=== PATIENT | female | born 1980 | race Caucasian/White ===

== ENCOUNTER 2016-12-22 22:12 | Emergency (ER) | payer OTHER ==
[~2016-12-22 22:12] MED LIST: COL100 PO; FER300 PO; METHOTREXATE2.5 M2 PO; NOR10T PO; PREDNISONE2.5 MG PO; VITC PO; ZOFRAN8 MG PO
[2016-12-23 00:39] VITALS: BP 115/90
== END 2016-12-22 23:15 | disposition home or self-care (01) ==
LOC: ED 22:12
DX: M06.9 Rheumatoid arthritis, unspecified (principal); F41.9 Anxiety disorder, unspecified; Z79.899 Other long term (current) drug therapy
CPT/HCPCS: J1170; Q0162

== ENCOUNTER 2017-04-29 14:17 | Emergency (ER) | payer OTHER ==
[2017-04-29 14:43] VITALS: BP 123/77
== END 2017-04-29 16:50 | disposition home or self-care (01) ==
LOC: ED 14:17
DX: S93.402A Sprain of unspecified ligament of left ankle, initial encounter (principal); X50.1XXA Overexertion from prolonged static or awkward postures, initial encounter; Y93.89 Activity, other specified; Y92.89 Other specified places as the place of occurrence of the external cause; Y99.8 Other external cause status

== ENCOUNTER 2017-06-01 21:05 | Emergency (ER) | payer OTHER ==
[2017-06-01 23:12] VITALS: BP 117/87
== END 2017-06-01 23:12 | disposition home or self-care (01) ==
LOC: ED 21:05
DX: J02.9 Acute pharyngitis, unspecified (principal); M79.1 Myalgia; R11.2 Nausea with vomiting, unspecified; M06.9 Rheumatoid arthritis, unspecified
CPT/HCPCS: J7512

== ENCOUNTER 2017-06-21 17:23 | Emergency (ER) | payer OTHER ==
[2017-06-21 21:05] VITALS: BP 143/108
== END 2017-06-21 21:06 | disposition home or self-care (01) ==
LOC: ED 17:23
DX: S40.022A Contusion of left upper arm, initial encounter (principal); Z88.0 Allergy status to penicillin; X58.XXXA Exposure to other specified factors, initial encounter; Y93.89 Activity, other specified; Y92.89 Other specified places as the place of occurrence of the external cause; Y99.8 Other external cause status

== ENCOUNTER 2017-07-24 16:59 | Emergency (ER) | payer OTHER ==
[2017-07-24 19:40] VITALS: BP 118/74
== END 2017-07-24 19:40 | disposition home or self-care (01) ==
LOC: ED 16:59
DX: S93.402A Sprain of unspecified ligament of left ankle, initial encounter (principal); M06.9 Rheumatoid arthritis, unspecified; Z88.0 Allergy status to penicillin; X50.1XXA Overexertion from prolonged static or awkward postures, initial encounter; Y93.89 Activity, other specified; Y92.89 Other specified places as the place of occurrence of the external cause; Y99.8 Other external cause status
CPT/HCPCS: J1885; J7512

== ENCOUNTER 2017-09-22 22:47 | Observation (INO) | payer OTHER ==
[~2017-09-22] VITALS: Ht 154.9 cm; Wt 70.3 kg
[2017-09-22 23:09] VITALS: Ht 154.9 cm; Wt 70.3 kg
[2017-09-23 00:42] LABS: BASOPHIL % 0.4 % (0-2); PLATELET COUNT 306 x10^3mcL (130-400)
[2017-09-23 00:44] LABS: RED CELL DISTRIBUTION WIDTH 16.5 % (11.5-14.5)
[2017-09-23 00:53] LABS: CALCIUM 8.2 mg/dL (8.5-10.1); CARBON DIOXIDE 26.7 mmol/L (21-32); CHLORIDE SERUM 106 mmol/L (98-107); CREATININE SERUM 0.6 mg/dL (0.6-1.0); GFR1 > 60 mL/min; GLUCOSE SERUM 101 mg/dL (74-106); POTASSIUM SERUM 3.4 mmol/L (3.5-5.1); SODIUM SERUM 140 mmol/L (136-145)
[2017-09-23 00:57] LABS: ALKALINE PHOSPHATASE 42 U/L (46-116); ALT/SGPT 17 U/L (14-59); AST/SGOT 13 U/L (15-37); BILIRUBIN TOTAL 0.25 mg/dL (0.20-1.00); TOTAL PROTEIN, SERUM 6.5 g/dL (6.4-8.2)
[2017-09-23 00:58] LABS: ALBUMIN 3.3 g/dL (3.4-5.0)
[2017-09-23 02:41] VITALS: BP 112/65
[2017-09-23 02:51] VITALS: BP 112/65
[2017-09-23 04:02] LABS: FREE T4 1.1 ng/dL (0.76-1.46); FREE THYROXINE INDEX 2.5 ug/dL (1.4-4.5); T4(THYROXINE) 7.1 ug/dL (4.7-13.3)
[2017-09-23 04:03] LABS: T3 TOTAL 1.11 ng/mL
[2017-09-23 04:20] LABS: CHOLESTEROL/HDL RATIO 2.4; MAGNESIUM 1.9 mg/dL (1.8-2.4); PHOSPHOROUS 4.1 mg/dL (2.5-4.9)
[2017-09-23 05:09] VITALS: BP 110/83
[2017-09-23 08:35] VITALS: BP 95/64
[2017-09-23 10:49] LABS: microscopic required? YES; urine erythrocyte 3+ (NEGATIVE)
[2017-09-23 10:59] LABS: AMPHETAMINE QUAL UR NONE DETECTED (NEG <=1000)
[2017-09-23 12:17] VITALS: BP 99/67
[2017-09-23 20:31] VITALS: BP 98/70
[2017-09-24 05:00] VITALS: BP 101/66
[2017-09-24 06:01] LABS: BASOPHIL % 0.5 % (0-2); PLATELET COUNT 279 x10^3mcL (130-400)
[2017-09-24 06:20] LABS: RED CELL DISTRIBUTION WIDTH 16.9 % (11.5-14.5)
[2017-09-24 06:28] LABS: CHLORIDE SERUM 110 mmol/L (98-107); CREATININE SERUM 0.8 mg/dL (0.6-1.0); GFR1 > 60 mL/min; GLUCOSE SERUM 90 mg/dL (74-106); MAGNESIUM 1.7 mg/dL (1.8-2.4); PHOSPHOROUS 3.2 mg/dL (2.5-4.9); SODIUM SERUM 142 mmol/L (136-145)
[2017-09-24 09:05] VITALS: BP 112/79
[2017-09-24] MEDS ORDERED: LEVAQUIN750 MG PO (09:27)
[2017-09-24] MEDS ORDERED: LAC PO (09:28)
[2017-09-24] MEDS ORDERED: METHOCARBAMOL500 MG PO (09:29)
[2017-09-24] MEDS ORDERED: MECLIZINE HCL12.5 MG PO (09:30)
[2017-09-24] MEDS ORDERED: TYL325 PO (09:30)
[2017-09-24] MEDS ORDERED: ELA50 PO (09:30)
[2017-09-24] MEDS ORDERED: FER300 PO (09:48)
[2017-09-24 10:13] VITALS: BP 112/79
== END 2017-09-24 11:23 | disposition home or self-care (01) | DRG 54 ==
LOC: ED 22:47 → DU 09-23 01:49
PROVIDERS: Family Medicine; Specialist
DX: G44.209 Tension-type headache, unspecified, not intractable (principal); N17.0 Acute kidney failure with tubular necrosis; N39.0 Urinary tract infection, site not specified; E87.6 Hypokalemia; D64.9 Anemia, unspecified; E44.1 Mild protein-calorie malnutrition; M06.9 Rheumatoid arthritis, unspecified; F14.11 Cocaine abuse, in remission; Z68.29 Body mass index [BMI] 29.0-29.9, adult; Z79.52 Long term (current) use of systemic steroids
CPT/HCPCS: 83880; 84439; 97110-GP; 97116-GP; 97530-GP; G0378; J0780; J1885; J1956; J3010; J3030; J7030; J7512; J8597; Q0092

== ENCOUNTER 2017-10-07 09:06 | Emergency (ER) | payer OTHER ==
[~2017-10-07] VITALS: Ht 154.9 cm; Wt 69.4 kg
[~2017-10-07 09:06] MED LIST changes: +ELA50 PO; +LAC PO; +LEVAQUIN750 MG PO; +MECLIZINE HCL12.5 MG PO; +METHOCARBAMOL500 MG PO; +TYL325 PO
[2017-10-07 09:27] VITALS: Ht 154.9 cm; Wt 69.4 kg
[2017-10-07 11:02] VITALS: BP 100/64
== END 2017-10-07 11:02 | disposition home or self-care (01) ==
LOC: ED 09:06
DX: M54.6 Pain in thoracic spine (principal); M06.9 Rheumatoid arthritis, unspecified; Z88.0 Allergy status to penicillin; W22.8XXA Striking against or struck by other objects, initial encounter; Y93.89 Activity, other specified; Y92.89 Other specified places as the place of occurrence of the external cause; Y99.8 Other external cause status
CPT/HCPCS: 72072

== ENCOUNTER 2017-12-05 13:50 | Emergency (ER) | payer OTHER ==
[~2017-12-05] VITALS: Ht 149.9 cm; Wt 71.7 kg
[2017-12-05 14:13] VITALS: Ht 149.9 cm; Wt 71.7 kg
[2017-12-05 18:14] VITALS: BP 96/65
== END 2017-12-05 18:14 | disposition home or self-care (01) ==
LOC: ED 13:50
DX: F32.9 Major depressive disorder, single episode, unspecified (principal); Z88.0 Allergy status to penicillin
CPT/HCPCS: J1885

== ENCOUNTER 2017-12-13 19:15 | Emergency (ER) | payer OTHER ==
[~2017-12-13] VITALS: Ht 149.9 cm; Wt 69.9 kg
[2017-12-13 19:42] VITALS: Ht 149.9 cm; Wt 69.9 kg
[2017-12-14 00:12] VITALS: BP 115/71
== END 2017-12-14 00:12 | disposition home or self-care (01) ==
LOC: ED 19:15
DX: S00.83XA Contusion of other part of head, initial encounter (principal); S60.211A Contusion of right wrist, initial encounter; M54.2 Cervicalgia; Z88.0 Allergy status to penicillin; Y04.8XXA Assault by other bodily force, initial encounter; Y93.89 Activity, other specified; Y92.89 Other specified places as the place of occurrence of the external cause; Y99.8 Other external cause status
CPT/HCPCS: A4570; J1885

== ENCOUNTER 2018-01-20 17:56 | Emergency (ER) | payer OTHER ==
[~2018-01-20] VITALS: Ht 154.9 cm; Wt 70.3 kg
[2018-01-20 18:18] VITALS: Ht 154.9 cm; Wt 70.3 kg
[2018-01-20 20:38] VITALS: BP 128/76
== END 2018-01-20 20:38 | disposition home or self-care (01) ==
LOC: ED 17:56
DX: L02.212 Cutaneous abscess of back [any part, except buttock and flank] (principal); M06.9 Rheumatoid arthritis, unspecified; Z88.0 Allergy status to penicillin
CPT/HCPCS: J0696; J2001; Q0163

== ENCOUNTER 2018-01-23 13:12 | Emergency (ER) | payer OTHER ==
[~2018-01-23] VITALS: Ht 154.9 cm; Wt 70.3 kg
[2018-01-23 13:14] VITALS: Ht 154.9 cm; Wt 70.3 kg
[2018-01-23 14:10] VITALS: BP 113/63
== END 2018-01-23 14:10 | disposition home or self-care (01) ==
LOC: ED 13:12
DX: Z48.01 Encounter for change or removal of surgical wound dressing (principal); M06.9 Rheumatoid arthritis, unspecified

== ENCOUNTER 2018-02-17 13:07 | Emergency (ER) | payer OTHER ==
[~2018-02-17] VITALS: Ht 154.9 cm; Wt 64.4 kg
[2018-02-17 13:11] VITALS: BP 120/73; Ht 154.9 cm; Wt 64.4 kg
== END 2018-02-17 15:34 | disposition home or self-care (01) ==
LOC: ED 13:07
DX: M06.9 Rheumatoid arthritis, unspecified (principal); F32.9 Major depressive disorder, single episode, unspecified
CPT/HCPCS: J1885

== ENCOUNTER 2018-08-16 16:45 | Emergency (ER) | payer OTHER ==
[~2018-08-16] VITALS: Ht 154.9 cm; Wt 158.3 kg
[2018-08-16 16:56] VITALS: Ht 154.9 cm; Wt 158.3 kg
[2018-08-16 20:47] VITALS: BP 129/83
== END 2018-08-16 20:47 | disposition home or self-care (01) ==
LOC: ED 16:45
DX: J18.9 Pneumonia, unspecified organism (principal); F41.9 Anxiety disorder, unspecified; M06.9 Rheumatoid arthritis, unspecified; F32.9 Major depressive disorder, single episode, unspecified; Z98.890 Other specified postprocedural states
CPT/HCPCS: 87804

== ENCOUNTER 2018-08-17 18:37 | Emergency (ER) | payer OTHER ==
[~2018-08-17] VITALS: Ht 154.9 cm; Wt 67.1 kg
[2018-08-17 19:14] VITALS: Ht 154.9 cm; Wt 67.1 kg
[2018-08-17 20:08] LABS: BASOPHIL % 0.9 % (0-2); PLATELET COUNT 333 x10^3mcL (130-400)
[2018-08-17 20:12] LABS: RED CELL DISTRIBUTION WIDTH 18.4 % (11.5-14.5)
[2018-08-17 20:18] LABS: CALCIUM 8.7 mg/dL (8.5-10.1); CARBON DIOXIDE 28.2 mmol/L (21-32); CHLORIDE SERUM 105 mmol/L (98-107); CREATININE SERUM 0.8 mg/dL (0.6-1.0); GFR1 > 60 mL/min; GLUCOSE SERUM 100 mg/dL (74-106); POTASSIUM SERUM 3.6 mmol/L (3.5-5.1); SODIUM SERUM 141 mmol/L (136-145)
[2018-08-17 20:23] LABS: ALBUMIN 3.6 g/dL (3.4-5.0); ALKALINE PHOSPHATASE 71 U/L (46-116); ALT/SGPT 23 U/L (14-59); AST/SGOT 17 U/L (15-37); BILIRUBIN TOTAL 0.42 mg/dL (0.20-1.00); TOTAL PROTEIN, SERUM 8.3 g/dL (6.4-8.2)
[2018-08-17 20:35] LABS: UA SPECIFIC GRAVITY 1.015 (1.005-1.035); microscopic required? YES; urine erythrocyte NEGATIVE (NEGATIVE)
[2018-08-17 22:02] VITALS: BP 101/72
== END 2018-08-17 22:11 | disposition home or self-care (01) ==
LOC: ED 18:37
PROVIDERS: Emergency Medicine
DX: J18.9 Pneumonia, unspecified organism (principal); R51 Headache; M79.10 Myalgia, unspecified site; F41.9 Anxiety disorder, unspecified; M06.9 Rheumatoid arthritis, unspecified; N83.209 Unspecified ovarian cyst, unspecified side; F32.9 Major depressive disorder, single episode, unspecified; Z98.890 Other specified postprocedural states; Z90.722 Acquired absence of ovaries, bilateral
CPT/HCPCS: J2405; J7030

== ENCOUNTER 2018-09-11 19:22 | Emergency (ER) | payer OTHER ==
[~2018-09-11] VITALS: Ht 154.9 cm; Wt 68.0 kg
[2018-09-11 20:01] VITALS: Ht 154.9 cm; Wt 68.0 kg
[2018-09-12 00:19] LABS: CALCIUM 8.3 mg/dL (8.5-10.1); CARBON DIOXIDE 28.5 mmol/L (21-32); CHLORIDE SERUM 104 mmol/L (98-107); CREATININE SERUM 0.8 mg/dL (0.6-1.0); GFR1 > 60 mL/min; GLUCOSE SERUM 100 mg/dL (74-106); SODIUM SERUM 142 mmol/L (136-145)
[2018-09-12 02:44] VITALS: BP 128/80
== END 2018-09-12 02:44 | disposition home or self-care (01) ==
LOC: ED 19:22
PROVIDERS: Emergency Medicine
DX: M62.838 Other muscle spasm (principal); M06.9 Rheumatoid arthritis, unspecified; F41.9 Anxiety disorder, unspecified; F32.9 Major depressive disorder, single episode, unspecified; Z98.890 Other specified postprocedural states
CPT/HCPCS: J1885; Q9967

== ENCOUNTER 2018-10-16 10:43 | Emergency (ER) | payer OTHER ==
[~2018-10-16] VITALS: Ht 154.9 cm; Wt 66.7 kg
[2018-10-16 11:02] VITALS: Ht 154.9 cm; Wt 66.7 kg
[2018-10-16 13:41] VITALS: BP 103/65
== END 2018-10-16 13:40 | disposition home or self-care (01) ==
LOC: ED 10:43
DX: S83.91XA Sprain of unspecified site of right knee, initial encounter (principal); M25.461 Effusion, right knee; F41.9 Anxiety disorder, unspecified; M19.90 Unspecified osteoarthritis, unspecified site; F32.9 Major depressive disorder, single episode, unspecified; Z98.890 Other specified postprocedural states; W10.8XXA Fall (on) (from) other stairs and steps, initial encounter; Y93.89 Activity, other specified; Y92.89 Other specified places as the place of occurrence of the external cause; Y99.8 Other external cause status
CPT/HCPCS: J1885

== ENCOUNTER 2018-12-23 13:27 | Emergency (ER) | payer OTHER ==
[~2018-12-23] VITALS: Ht 157.5 cm; Wt 66.5 kg
[2018-12-23 13:35] VITALS: BP 121/80; Ht 157.5 cm; Wt 66.5 kg
== END 2018-12-23 14:04 | disposition home or self-care (01) ==
LOC: ED 13:27
DX: L65.9 Nonscarring hair loss, unspecified (principal); F41.9 Anxiety disorder, unspecified; M06.9 Rheumatoid arthritis, unspecified; F32.9 Major depressive disorder, single episode, unspecified; Z98.890 Other specified postprocedural states; Z90.722 Acquired absence of ovaries, bilateral

== ENCOUNTER 2019-01-29 12:11 | Emergency (ER) | payer OTHER ==
[~2019-01-29] VITALS: Ht 154.9 cm; Wt 64.9 kg
[2019-01-29 12:20] VITALS: Ht 154.9 cm; Wt 64.9 kg
[2019-01-29 16:30] VITALS: BP 108/78
== END 2019-01-29 16:30 | disposition home or self-care (01) ==
LOC: ED 12:11
DX: S60.222A Contusion of left hand, initial encounter (principal); F41.9 Anxiety disorder, unspecified; M06.9 Rheumatoid arthritis, unspecified; F32.9 Major depressive disorder, single episode, unspecified; Z98.890 Other specified postprocedural states; Z90.722 Acquired absence of ovaries, bilateral; Y04.8XXA Assault by other bodily force, initial encounter; Y93.89 Activity, other specified; Y92.89 Other specified places as the place of occurrence of the external cause; Y99.8 Other external cause status

== ENCOUNTER 2019-02-01 20:19 | Emergency (ER) | payer OTHER ==
[~2019-02-01] VITALS: Ht 154.9 cm; Wt 65.8 kg
[2019-02-01 20:51] VITALS: Ht 154.9 cm; Wt 65.8 kg
[2019-02-01 22:30] VITALS: BP 113/84
== END 2019-02-01 22:30 | disposition home or self-care (01) ==
LOC: ED 20:19
DX: S30.0XXA Contusion of lower back and pelvis, initial encounter (principal); M54.2 Cervicalgia; R11.0 Nausea; F41.9 Anxiety disorder, unspecified; M06.9 Rheumatoid arthritis, unspecified; F32.9 Major depressive disorder, single episode, unspecified; Z98.890 Other specified postprocedural states; Y04.0XXA Assault by unarmed brawl or fight, initial encounter; Y93.89 Activity, other specified; Y92.89 Other specified places as the place of occurrence of the external cause; Y99.8 Other external cause status
CPT/HCPCS: J1885

== ENCOUNTER 2019-04-27 07:45 | Emergency (ER) | payer OTHER ==
[~2019-04-27] VITALS: Ht 154.9 cm; Wt 66.7 kg
[2019-04-27 07:53] VITALS: BP 119/82; Ht 154.9 cm; Wt 66.7 kg
== END 2019-04-27 10:03 | disposition home or self-care (01) ==
LOC: ED 07:45
DX: J02.9 Acute pharyngitis, unspecified (principal); F41.9 Anxiety disorder, unspecified; F32.9 Major depressive disorder, single episode, unspecified; Z90.721 Acquired absence of ovaries, unilateral

== ENCOUNTER 2019-05-22 08:48 | Emergency (ER) | payer OTHER ==
[~2019-05-22] VITALS: Ht 154.9 cm; Wt 67.1 kg
[2019-05-22 09:07] VITALS: BP 130/75; Ht 154.9 cm; Wt 67.1 kg
== END 2019-05-22 11:16 | disposition home or self-care (01) ==
LOC: ED 08:48
DX: S16.1XXA Strain of muscle, fascia and tendon at neck level, initial encounter (principal); S39.012A Strain of muscle, fascia and tendon of lower back, initial encounter; V49.49XA Driver injured in collision with other motor vehicles in traffic accident, initial encounter; Y93.I9 Activity, other involving external motion; Y92.413 State road as the place of occurrence of the external cause; Y99.8 Other external cause status

== ENCOUNTER 2019-06-06 16:38 | Emergency (ER) | payer OTHER ==
[~2019-06-06] VITALS: Ht 154.9 cm; Wt 67.1 kg
[2019-06-06 16:42] VITALS: Ht 154.9 cm; Wt 67.1 kg
[2019-06-06 18:10] VITALS: BP 118/78
== END 2019-06-06 18:10 | disposition home or self-care (01) ==
LOC: ED 16:38
DX: M54.6 Pain in thoracic spine (principal); F41.9 Anxiety disorder, unspecified; M06.9 Rheumatoid arthritis, unspecified; F32.9 Major depressive disorder, single episode, unspecified; Z90.722 Acquired absence of ovaries, bilateral; Z98.890 Other specified postprocedural states; V49.9XXA Car occupant (driver) (passenger) injured in unspecified traffic accident, initial encounter; Y93.I9 Activity, other involving external motion; Y92.413 State road as the place of occurrence of the external cause; Y99.8 Other external cause status
CPT/HCPCS: J1885

== ENCOUNTER 2019-09-17 20:00 | Emergency (ER) | payer OTHER ==
[~2019-09-17] VITALS: Ht 162.6 cm; Wt 66.7 kg
[2019-09-17 20:04] VITALS: BP 115/86; Ht 162.6 cm; Wt 66.7 kg
== END 2019-09-17 21:37 | disposition home or self-care (01) ==
LOC: ED 20:00
DX: J20.9 Acute bronchitis, unspecified (principal); Z98.890 Other specified postprocedural states; Z90.710 Acquired absence of both cervix and uterus; M06.9 Rheumatoid arthritis, unspecified

== ENCOUNTER 2019-09-30 18:44 | Emergency (ER) | payer OTHER ==
[~2019-09-30] VITALS: Ht 157.5 cm; Wt 66.2 kg
[2019-09-30 18:56] VITALS: Ht 157.5 cm; Wt 66.2 kg
[2019-09-30 19:30] VITALS: BP 110/83
== END 2019-09-30 19:30 | disposition home or self-care (01) ==
LOC: ED 18:44
DX: R05 Cough (principal)

== ENCOUNTER 2019-10-13 15:06 | Emergency (ER) | payer OTHER ==
[~2019-10-13] VITALS: Ht 154.9 cm; Wt 67.6 kg
[2019-10-13 15:21] VITALS: Ht 154.9 cm; Wt 67.6 kg
[2019-10-13 16:07] LABS: BASOPHIL % 0.5 % (0-2); PLATELET COUNT 391 x10^3mcL (130-400); RED CELL DISTRIBUTION WIDTH 19.4 % (11.5-14.5)
[2019-10-13 16:15] LABS: CARBON DIOXIDE 28.4 mmol/L (21-32); CHLORIDE SERUM 104 mmol/L (98-107); CREATININE SERUM 0.7 mg/dL (0.6-1.0); GFR1 > 60 mL/min; GLUCOSE SERUM 93 mg/dL (74-106); POTASSIUM SERUM 3.2 mmol/L (3.5-5.1); SODIUM SERUM 140 mmol/L (136-145)
[2019-10-13 16:20] LABS: ALBUMIN 3.6 g/dL (3.4-5.0); ALKALINE PHOSPHATASE 59 U/L (46-116); ALT/SGPT 32 U/L (14-59); AST/SGOT 14 U/L (15-37); BILIRUBIN TOTAL 0.4 mg/dL (0.20-1.00); TOTAL PROTEIN, SERUM 7.6 g/dL (6.4-8.2)
[2019-10-13 17:20] VITALS: BP 107/67
== END 2019-10-13 17:34 | disposition home or self-care (01) ==
LOC: ED 15:06
PROVIDERS: Emergency Medicine
DX: G44.209 Tension-type headache, unspecified, not intractable (principal); M06.9 Rheumatoid arthritis, unspecified; R53.1 Weakness; R42 Dizziness and giddiness; R11.0 Nausea; Z98.890 Other specified postprocedural states
CPT/HCPCS: 82962; J1885; J2765; J7030

== ENCOUNTER 2020-02-04 17:21 | Emergency (ER) | payer OTHER ==
[~2020-02-04] VITALS: Ht 154.9 cm; Wt 67.6 kg
[2020-02-04 17:37] VITALS: Ht 154.9 cm; Wt 67.6 kg
[2020-02-04 19:08] VITALS: BP 118/75
== END 2020-02-04 19:08 | disposition home or self-care (01) ==
LOC: ED 17:21
DX: L30.9 Dermatitis, unspecified (principal); M06.9 Rheumatoid arthritis, unspecified; Z98.890 Other specified postprocedural states

== ENCOUNTER 2020-09-12 10:35 | Emergency (ER) | payer OTHER ==
[~2020-09-12] VITALS: Ht 154.9 cm; Wt 67.1 kg
[2020-09-12 11:35] VITALS: BP 108/81
== END 2020-09-12 11:36 | disposition home or self-care (01) ==
LOC: ED 10:35
DX: M06.842 Other specified rheumatoid arthritis, left hand (principal); M06.841 Other specified rheumatoid arthritis, right hand; Z98.890 Other specified postprocedural states
CPT/HCPCS: J1885; J2930

== ENCOUNTER 2020-09-30 14:05 | Emergency (ER) | payer OTHER ==
[~2020-09-30] VITALS: Ht 154.9 cm; Wt 67.1 kg
[2020-09-30 14:32] VITALS: Ht 154.9 cm; Wt 67.1 kg
[2020-09-30] MEDS ORDERED: NAP375 PO (14:52)
[2020-09-30] MEDS ORDERED: PRE20 PO (14:52)
[2020-09-30 15:22] VITALS: BP 122/84
== END 2020-09-30 15:22 | disposition home or self-care (01) ==
LOC: ED 14:05
DX: M06.832 Other specified rheumatoid arthritis, left wrist (principal); M06.831 Other specified rheumatoid arthritis, right wrist; M06.872 Other specified rheumatoid arthritis, left ankle and foot; M06.871 Other specified rheumatoid arthritis, right ankle and foot
CPT/HCPCS: J7512

== ENCOUNTER 2020-10-02 13:07 | Emergency (ER) | payer OTHER ==
[~2020-10-02] VITALS: Ht 154.9 cm; Wt 66.7 kg
[~2020-10-02 13:07] MED LIST changes: +NAP375 PO; +PRE20 PO
[2020-10-02 13:21] VITALS: BP 115/80; Ht 154.9 cm; Wt 66.7 kg
[2020-10-02] MEDS ORDERED: ULTRAM50 MG PO (15:11)
== END 2020-10-02 15:22 | disposition home or self-care (01) ==
LOC: ED 13:07
DX: S39.012A Strain of muscle, fascia and tendon of lower back, initial encounter (principal); Z90.721 Acquired absence of ovaries, unilateral; V49.49XA Driver injured in collision with other motor vehicles in traffic accident, initial encounter; Y93.I9 Activity, other involving external motion; Y92.413 State road as the place of occurrence of the external cause; Y99.8 Other external cause status
CPT/HCPCS: J1885